=== PATIENT | male | born 1960 | race Caucasian/White ===

== ENCOUNTER → 2021-11-03 | Outpatient (CLI) | payer MEDICARE, MEDICAID ==
--- NOTE | 2021-11-03 17:20 | RAD ---
EXAM: Bilateral carotid duplex with waveform analysis. CLINICAL HISTORY: Syncope and collapse TECHNIQUE: Longitudinal and transverse sonographic images of the bilateral carotid arteries was perfo rmed utilizing grayscale, color and spectral Doppler techniques. COMPARISON: None FINDINGS: There are calcifications in the carotid bulb, greater on the left.. Vertebrals: Antegrade flow bilaterally. Right: PSV CCA (cm/s): 93 PSV ICA (cm/s): 75 EDV ICA (cm/s): 24 PSV ECA (cm/s): 98 ICA/CCA Ratio: 0.81 Left: PSV CCA (cm/s): 105 PSV ICA (cm/s): 66 EDV ICA (cm/s): 20 PSV ECA (cm/s): 92 ICA/CCA Ratio: 0.62 IMPRESSION: Less than 50 percent stenosis of the internal carotid arteries bilaterally. Consensus Panel Montilla-scale and Doppler US Criteria for Diagnosis of ICA Stenosis Degree of Stenosis (%) ICA PSV (Cm/sec) Plaque Estimate (%)* Normal <125 None <50 <125 <50 50-69 125-230 >50 >70 but < near occlusion >230 >50 Near occlusion High, low, or undetectable Visible Total occlusion Undetectable Visible, no detectable lumen *Plaque estimate (diameter reduction) with montilla-scale and color Doppler US Degree of Stenosis (%) ICA/CCA PSV Ratio ICA EDV (cm/sec) Normal <2.0 <40 <50 <2.0 <40 50-69 2.0-4.0 40-100 >70 but < near occlusion >4.0 >100 Near occlusion Variable Variable Total occlusion Not applicable Not applicable Electronically signed by: Lindsey Rod MD (11/03/2021 5:17 PM) [id number]
== END ==
LOC: US 16:01
PROVIDERS: ATTEND Family Medicine
DX: I65.23 Occlusion and stenosis of bilateral carotid arteries (principal); R55 Syncope and collapse
CPT/HCPCS: 93880

== ENCOUNTER 2022-02-15 05:21 | Emergency (ER) | payer MEDICARE, MEDICAID ==
[~2022-02-15] VITALS: Ht 185.4 cm; Wt 85.9 kg
--- NOTE | 2022-02-15 05:25 | PHYS DOC ---
Past History Past Medical History: Hypertension, Sciatica (KEVIN FORD MD) Past Surgical History Bone grafts (KEVIN FORD MD) Smoking: Cigarettes (KEVIN FORD MD) General Adult HPI: HPI: ".. I having some nausea and vomiting.."... "I have been vomiting since Wednesday... I tried everything.. Tums, Calcium tabs.., Pepto-Bismol,.. " " I am puking so much... I can't keep my hypertension meds down..." Patient is a 62 year old male who presents with above hx and complaints nausea and vomiting since Wednesday. Patient denies any intake bad food. No recent travel. Possible exposure to 2 friends that have been ill. Patient did Complete COVID vaccination x2. Did not get flu vaccination this season. Patient normally follows with Dr. Garsia. No history of immunosuppression (KEVIN FORD MD) Review of Systems: Review of Systems: Constitutional: Denies fever or chills Eyes: Denies change in visual acuity HENT: Denies nasal congestion or sore throat Respiratory: Denies cough or shortness of breath Cardiovascular: Denies chest pain or edema GI: Epigastric abdominal pain, nausea, vomiting,. Denies bloody stools or diarrhea : Denies dysuria Musculoskeletal: Denies back pain or joint pain Integument: Denies rash Neurologic: Denies headache, focal weakness or sensory changes Endocrine: Denies polyuria or polydipsia Lymphatic: Denies swollen glands Psychiatric: Denies depression or anxiety (KEVIN FORD MD) Family History: Family History: Noncontributory to presentation (KEVIN FORD MD) Current Medications: Current Meds: See nursing for home meds (KEVIN FORD MD) Allergies: Allergies: No known drug allergies (KEVIN FORD MD) Physical Exam: PE: Constitutional: Well developed, well nourished, moderate acute distress, non- toxic appearance. [] HENT: Normocephalic, atraumatic, bilateral external ears normal, oropharynx dry, no oral exudates, nose normal. [] Eyes: PERRLA, EOMI, conjunctiva normal, no discharge. [] Neck: Normal range of motion, no tenderness, supple, no stridor. [] Cardiovascular:Heart rate regular rhythm, no murmur, PMI to left Lungs & Thorax: Bilateral breath sounds equal apex with few scattered wheezes on auscultation [] Abdomen: Bowel sounds hyperactive, soft, epigastric tenderness, no masses, no pulsatile masses. [] Skin: Warm, dry, no erythema, no rash. [] Back: No tenderness, no CVA tenderness. [] Extremities: No tenderness, no cyanosis, no clubbing, ROM intact, no edema. Right foot drop brace, scar, left leg scar, left hip scar Neurologic: Alert and oriented X 3, moves all extremities on request, has distal sensory,, no new focal deficits noted per patient Psychologic: Affect anxious, judgement normal, mood normal. [] (KEVIN FORD MD) Current Patient Data: Labs: Laboratory Tests Test 02/15/22 05:54 02/15/22 06:10 02/15/22 06:12 Urine Collection Type Unknown Urine Color Yellow Urine Clarity Clear Urine pH 6.0 Urine Specific [place] >=1.030 Urine Protein 100 mg/dl Urine Glucose (UA) Neg mg/dL Urine Ketones (Stick) 15 mg/dL Urine Blood Small Urine Nitrite Neg Urine Bilirubin Small Urine Urobilinogen Dipstick 1.0 mg/dL Urine Leukocyte Esterase Neg Urine RBC 3-5 /HPF Urine WBC Occ /HPF Urine Squamous Epithelial Cells Occ /LPF Urine Bacteria 0 /HPF White Blood Count 12.0 x10^3/uL Red Blood Count 5.38 x10^6/uL Hemoglobin 17.6 g/dL Hematocrit 51.8 % Mean Corpuscular Volume 96 fL Mean Corpuscular Hemoglobin 33 pg Mean Corpuscular Hemoglobin Concent 34 g/dL Red Cell Distribution Width 14.1 % Platelet Count 231 x10^3/uL Neutrophils (%) (Auto) 71 % Lymphocytes (%) (Auto) 19 % Monocytes (%) (Auto) 10 % Eosinophils (%) (Auto) 0 % Basophils (%) (Auto) 1 % Neutrophils # (Auto) 8.5 x10^3uL Lymphocytes # (Auto) 2.2 x10^3/uL Monocytes # (Auto) 1.1 x10^3/uL Eosinophils # (Auto) 0.0 x10^3/uL Basophils # (Auto) 0.1 x10^3/uL Prothrombin Time 11.0 SEC Prothromb Time International Ratio 1.1 Activated Partial Thromboplast Time 23 SEC Sodium Level 140 mmol/L Potassium Level 3.6 mmol/L Chloride Level 99 mmol/L Carbon Dioxide Level 32 mmol/L Anion Gap 9 Blood Urea Nitrogen 18 mg/dL Creatinine 1.2 mg/dL Estimated GFR (Cockcroft-Gault) 61.1 Glucose Level 106 mg/dL Calcium Level 9.8 mg/dL Total Bilirubin 0.9 mg/dL Direct Bilirubin 0.3 mg/dL Aspartate Amino Transf (AST/SGOT) 23 U/L Alanine Aminotransferase (ALT/SGPT) 32 U/L Alkaline Phosphatase 49 U/L Creatine Kinase 96 U/L Troponin I High Sensitivity 12 ng/L Total Protein 7.1 g/dL Albumin 4.0 g/dL Lipase 102 U/L Urine Opiates Screen Pos Urine Methadone Screen Neg Urine Barbiturates Neg Urine Phencyclidine Screen Neg Urine Amphetamine/Methamphetamine Neg Urine Benzodiazepines Screen Neg Urine Cocaine Screen Neg Urine Cannabinoids Screen Pos Urine Ethyl Alcohol Neg Influenza Type A (Rapid) Negative Influenza Type B (Rapid) Negative SARS-CoV-2 Antigen (Rapid) Negative Current Medications Medications (Trade) Dose Ordered Sig/Abigail Route PRN Reason Start Time Stop Time Status Last Admin Dose Admin Lactated Ringer's 1,000 ml @ 1,000 mls/hr Q1H IV 02/15/22 05:45 02/15/22 06:45 DC 02/15/22 06:27 Ondansetron HCl (Zofran) 8 mg 1X ONCE IVP 02/15/22 05:45 02/15/22 05:46 DC 02/15/22 06:30 Famotidine (Pepcid Vial) 20 mg 1X ONCE IVP 02/15/22 05:45 02/15/22 05:46 DC 02/15/22 06:29 Ketorolac Tromethamine (Toradol 30mg Vial) 30 mg 1X ONCE IVP 02/15/22 05:45 02/15/22 05:46 DC 02/15/22 06:30 Iohexol (Omnipaque 300 Mg/ml) 75 ml 1X ONCE IV 02/15/22 07:15 02/15/22 07:16 DC 02/15/22 07:21 Info (Do NOT chart on this entry -- for MONITORING) 1 each PRN DAILY PRN MC SEE COMMENTS 02/15/22 07:30 02/17/22 07:29 Fentanyl Citrate (Fentanyl 2ml Vial) 50 mcg 1X ONCE IVP 02/15/22 08:00 02/15/22 08:01 DC 02/15/22 07:53 Nicotine (Nicoderm Cq 14mg Patch) 1 patch PRN DAILY PRN TD SMOKING CESSATION 02/15/22 08:45 02/15/22 08:58 Multi-Ingredient Mouthwash/Gargle (Gi Cocktail) 20 ml 1X ONCE PO 02/15/22 09:30 02/15/22 09:31 DC 02/15/22 09:33 Dicyclomine HCl (Bentyl) 20 mg 1X ONCE IM 02/15/22 09:30 02/15/22 09:31 DC 02/15/22 09:33 Vital Signs: Vital Signs Date Time Temp Pulse Resp B/P (MAP) Pulse Ox O2 Delivery O2 Flow Rate FiO2 02/15/22 07:53 16 97 02/15/22 06:32 69 18 180/103 (128) 98 Room Air 02/15/22 05:26 98.2 84 18 158/98 (118) 97 (DONELL FLETCHER MD) EKG: EKG: [] (KEVIN FORD MD) Radiology/Procedures: Radiology/Procedures: [] (KEVIN FORD MD) Radiology/Procedures: [address] [address] IMAGING REPORT Signed PATIENT: BLU LOPEZ ACCOUNT: [id number] : 1960 LOCATION: ER AGE: 62 SEX: M EXAM STATUS: REG ER ORD. PHYSICIAN: DONELL FLETCHER MD REASON: RUQ pain PROCEDURE: ABDOMEN OR LWR BACK LTD Abdominal ultrasound right upper quadrant: Reason for examination: Right upper quadrant pain. Comparison is made to CT examination dated 02/15/2022. The liver is normal in size at 14.5 cm in greatest dimension and appears to be homogeneous with some fatty infiltration but no focal lesion. There is hepatopedal portal venous flow. Gallbladder appears to be a fold near the gallbladder neck. No definite choleliths are identified. Gallbladder wall is not thickened at 1.5 mm. Common bile duct is normal in caliber at 2.7 mm. Pancreas is obscured by bowel gas. Right kidney measures 11.3 x 5.1 x 5.3 cm in greatest dimensions and shows normal cortical medullary differentiation and good vascular flow with no mass or hydronephrosis. The abdominal aorta and inferior vena cava are poorly visualized due to midline bowel gas. IMPRESSION: Fatty liver. Folds in the region of the gallbladder neck which probably corresponds with the area of CT concern but no definite choleliths identified. Electronically signed by: Austin Schuster MD (02/15/2022 9:13 AM) [facility] DICTATED AND SIGNED BY: AUSTIN SCHUSTER MD DATE: 02/15/22905 CC: DONELL FLETCHER MD; TRISTIN GARSIA MD ~ [address] [address] IMAGING REPORT Signed PATIENT: BLU LOPEZ ACCOUNT: [id number] : 1960 LOCATION: ER AGE: 62 SEX: M EXAM STATUS: REG ER ORD. PHYSICIAN: DONELL FLETCHER MD REASON: Upper mid abdominal pain, N/V, OMNI 300, 75ml PROCEDURE: CT ABD PELV W/ IV CONTRST ONLY EXAM: Abdomen and pelvis CT with intravenous contrast. HISTORY: Pain. TECHNIQUE: Computed tomographic images of the abdomen and pelvis were obtained following the administration of intravenous contrast. Multiplanar reformatting was performed. *One or more of the following individualized dose reduction techniques were utilized for this examination: 1. Automated exposure control. 2. Adjustment of the mA and/or kV according to patient size. 3. Use of iterative reconstruction technique. COMPARISON: None. FINDINGS: Evaluation of the lower thorax demonstrates no infiltrate or pleural effusion. There is no suspicious hepatic lesion. There is a 7 mm hyperdense lesion within the gallbladder fossa near the gallbladder neck which may be due to artifact from a gallbladder wall fold, stone or polyp. The pancreas is unremarkable. There are splenic granulomas. The spleen is normal in size. The adrenal glands are unremarkable. There are incidental partially duplicated renal collecting systems. There is no hydronephrosis. There is no suspicious renal lesion. There is no appendicitis. There are prominent air and fluid-filled loops of small bowel within the left upper quadrant. There is no transition point to suggest obstruction. There is a small amount of stool within the colon. The prostate is mildly enlarged. There is bladder wall thickening likely due to underdistention. There is aortic and aortic branch vessel atherosclerosis. There is no lymphadenopathy. There is no acute or suspicious osseous finding. There is degenerative change involving the spine, primarily at the lumbosacral junction. IMPRESSION: 1. Hepatic steatosis. 2. Small filling defect within the gallbladder near the gallbladder neck, possibly due to artifact from a gallbladder wall fold, a stone or polyp. This can be better assessed with a gallbladder sonogram. 3. Mild prostatomegaly. Electronically signed by: Odalys Castro MD (02/15/2022 7:52 AM) [id number] DICTATED AND SIGNED BY: ODALYS CASTRO MD DATE: 02/15/22747 CC: DONELL FLETCHER MD; TRISTIN GARSIA MD ~ [address] [address] IMAGING REPORT Signed PATIENT: BLU LOPEZ ACCOUNT: [id number] : 1960 LOCATION: ER AGE: 62 SEX: M EXAM STATUS: REG ER ORD. PHYSICIAN: KEVIN FORD MD REASON: pain PROCEDURE: ACUTE ABDOMEN SERIES Acute Abdominal Series: 02/15/2022 5:38 AM Reason for study: Pain Comparison studies: None. Technique: Frontal view of the chest was obtained along with supine and upright views of the abdomen. Findings: Nonobstructive bowel gas pattern. No air fluid levels or free air. Small amount of stool noted within the colon. The lungs are clear without acute consolidative opacity. Biapical pleural- parenchymal scarring. No pleural effusion or pneumothorax. The cardiac and mediastinal contours are normal. Visualized osseous structures are intact. IMPRESSION: 1. Nonobstructed bowel gas pattern. Small amount of stool noted within the colon. 2. No acute cardiopulmonary findings. Electronically signed by: Kylah Bach MD (02/15/2022 6:14 AM) [facility] DICTATED AND SIGNED BY: KYLAH BACH MD DATE: 02/15/22 0613 CC: KEVIN FORD MD; TRISTIN GARSIA MD ~ (DONELL FLETCHER MD) Heart Score: C/O Chest Pain: No Risk Factors: Risk Factors: DM, Current or recent (<one month) smoker, HTN, HLP, family history of CAD, obesity. Risk Scores: Score 0 - 3: 2.5% MACE over next 6 weeks - Discharge Home Score 4 - 6: 20.3% MACE over next 6 weeks - Admit for Clinical Observation Score 7 - 10: 72.7% MACE over next 6 weeks - Early Invasive Strategies (KEVIN FORD MD) C/O Chest Pain: No (DONELL FLETCHER MD) Course & Med Decision Making: Course & Med Decision Making Pertinent Labs and Imaging studies reviewed. (See chart for details) Endorsed to at shift change. He will make disposition. Labs and xrays. pending at shift change. Impression: 1. Nausea and Vomiting 2. Abdomen pain [] (KEVIN FORD MD) Course & Med Decision Making Addendum by Dr. Donell Fletcher at 0948: I took over care of patient from Dr. Ford at 0600. I followed up with the patient's lab work. Results are largely unremarkable. High-sensitivity troponin was normal. Given constant epigastric pain over the past 4 days, 1 troponin was used to rule out myocardial ischemia. LFTs and lipase within normal limits. Urinary tract shows no evidence of infection or significant hematuria. Abdominal CT scan was ordered and showed mild filling defect at the neck of the gallbladder. This was further evaluated with use of ultrasound to rule out cholelithiasis. The patient was treated with IV fluids, antiemetics, pain medication, GI cocktail, and dicyclomine. Patient's condition at this time has improved and patient is stable. Patient tolerating oral intake without difficulty. Patient appropriate for discharge at this time. Recommend close follow-up with primary doctor in the next 1 to 2 days for reevaluation. Provided with contact information for Dr. Connelly of gastroenterology to follow-up as needed if symptoms are persistent. Prescribed Pepcid, Zofran, Bentyl, and MiraLAX for outpatient treatment. Recommend return to the emergency department for any worsening symptoms. Patient voiced understanding and in agreement with treatment plan. (DONELL FLETCHER MD) Dragon Disclaimer: Dragon Disclaimer: This electronic medical record was generated, in whole or in part, using a voice recognition dictation system. (KEVIN FORD MD) Departure Departure: Impression: Primary Impression: Epigastric pain Additional Impression: Nausea and vomiting Qualified Codes: R11.2 - Nausea with vomiting, unspecified Disposition: HOME / SELF CARE / HOMELESS Condition: IMPROVED Referrals: TRISTIN GARSIA MD (PCP) EAGLE CONNELLY MD Patient Instructions: Abdominal Pain, Nausea and Vomiting Additional Instructions: Follow-up with your primary care provider in the next 2 days for reevaluation. Return to the emergency department for any worsening symptoms. Scripts Dicyclomine Hcl (DICYCLOMINE HCL) 20 Mg Tablet 1 TAB PO QID PRN for ABDOMINAL CRAMPS, #30 TAB Prov: DONELL FLETCHER MD 02/15/22 Polyethylene Glycol 3350 (MIRALAX) 17 Gm Powd.pack 1 PACKET PO DAILY for constipation for 2 Days, #2 PACKET 0 Refills dissolve in water Prov: DONELL FLETCHER MD 02/15/22 Ondansetron (ONDANSETRON ODT) 4 Mg Tab.rapdis 1 TAB PO Q8HRS PRN for VOMITING, #16 TAB Prov: DONELL FLETCHER MD 02/15/22 Famotidine (PEPCID) 20 Mg Tablet 1 TAB PO BID, #30 TAB 0 Refills Prov: DONELL FLETCHER MD 02/15/22 KEVIN FORD MD February 15, 2022 05:25 DONELL FLETCHER MD February 15, 2022 09:56
[2022-02-15] MEDS ORDERED: IV RINGERS SOLUTION,LACTATED 1,000 ML IV SCH (05:45)
[2022-02-15] MEDS ORDERED: ONDANSETRON PF 4 MG/2 ML VIAL. IVP ONE (05:45)
[2022-02-15] MEDS ORDERED: FAMOTIDINE 20 MG/2 ML VIAL IVP ONE (05:45)
[2022-02-15] MEDS ORDERED: KETOROLAC 30 MG/ML VIAL. IVP ONE (05:45)
--- NOTE | 2022-02-15 06:17 | RAD ---
Acute Abdominal Series: 02/15/2022 5:38 AM Reason for study: Pain Comparison studies: None. Technique: Frontal view of the chest was obtained along with supine and upright views of the abdomen. Findings: Nonobstructive bowel gas pattern. No air fluid levels or free air. Small amount of stool noted within the colon. The lungs are clear without acute consolidative opacity. Biapical pleural-parenchymal scarring. No pl eural effusion or pneumothorax. The cardiac and mediastinal contours are normal. Visualized osseous structures are intact. IMPRESSION: 1. Nonobstructed bowel gas pattern. Small amount of stool noted within the colon. 2. No acute cardiopulmonary findings. Electronically signed by: Naa Swanson MD (02/15/2022 6:14 AM) JONATHAN
[2022-02-15 06:34] LABS: BASO # 0.1 x10^3/uL (0.0-0.2); BASO % 1 % (0-3); EOS % 0 % (0-3); HEMATOCRIT 51.8 % (39.0-53.0); HEMOGLOBIN 17.6 g/dL (13.0-17.5); LYMPH # 2.2 x10^3/uL (1.0-4.8); LYMPH % 19 % (24-48); MEAN CORPUSCULAR HEMOGLOBIN 33 pg (25-35); MEAN CORPUSCULAR HGB CONC 34 g/dL (31-37); MEAN CORPUSCULAR VOLUME 96 fL (79-100); MONO # 1.1 x10^3/uL (0.0-1.1); MONO % 10 % (0-9); NEUT # 8.5 x10^3uL (1.8-7.7); NEUT % 71 % (31-73); PLATELET COUNT 231 x10^3/uL (140-400); RED BLOOD COUNT 5.38 x10^6/uL (4.30-5.70); RED CELL DISTRIBUTION WIDTH 14.1 % (11.5-14.5)
[2022-02-15 06:39] LABS: CLARITY,URINE CLEAR; COLOR,URINE YELLOW; GLUCOSE,URINE NEG (NEG)
[2022-02-15 06:40] LABS: BACTERIA,URINE 0 /HPF (0-FEW); NITRITE,URINE NEG (NEG); SQUAMOUS EPITHELIAL CELL,UR OCC /LPF; WBC,URINE OCC /HPF (0-4)
[2022-02-15 06:42] LABS: CALCIUM 9.8 mg/dL (8.5-10.1); CREATININE 1.2 mg/dL (0.7-1.3); GFR 61.1; POTASSIUM 3.6 mmol/L (3.5-5.1)
[2022-02-15 06:45] LABS: BARBITURATES NEG (NEG); BENZODIAZEPINES NEG (NEG); CANNABINOIDS POS (NEG); COCAINE NEG (NEG); METHADONE NEG (NEG); OPIATES POS (NEG); PHENCYCLIDINE NEG (NEG)
[2022-02-15 06:46] LABS: AMPHETAMINE/METHAMPHETAMINE NEG (NEG)
[2022-02-15 06:49] LABS: DIRECT BILIRUBIN 0.3 mg/dL (0.0-0.2); TOTAL BILIRUBIN 0.9 mg/dL (0.2-1.0); TOTAL PROTEIN 7.1 g/dL (6.4-8.2)
[2022-02-15 06:50] LABS: INFLUENZA A PATIENT NEGATIVE (NEGATIVE); INFLUENZA B PATIENT NEGATIVE (NEGATIVE)
[2022-02-15] MEDS ORDERED: IOHEXOL 300 MG/ML 75 ML VIAL. IV ONE (07:15)
[2022-02-15] MEDS ORDERED: CONTRAST GIVEN. MC PRN (07:30)
--- NOTE | 2022-02-15 07:54 | RAD ---
EXAM: Abdomen and pelvis CT with intravenous contrast. HISTORY: Pain. TECHNIQUE: Computed tomographic images of the abdomen and pelvis were obtained following the administ ration of intravenous contrast. Multiplanar reformatting was performed. *One or more of the following individualized dose reduction techniques were utilized for this examina tion: 1. Automated exposure control. 2. Adjustment of the mA and/or kV according to patient size. 3. Use of iterative reconstruction technique. COMPARISON: None. FINDINGS: Evaluation of the lower thorax demonstrates no infiltrate or pleural effusion. There is no suspicious hepatic lesion. There is a 7 mm hyperdense lesion within the gallbladder fossa near the ga llbladder neck which may be due to artifact from a gallbladder wall fold, stone or polyp. The pancrea s is unremarkable. There are splenic granulomas. The spleen is normal in size. The adrenal glands are unremarkable. There are incidental partially duplicated renal collecting systems. There is no hydronephrosis. There is no suspicious renal lesion. There is no appendicitis. There are prominent air and fluid-filled lo ops of small bowel within the left upper quadrant. There is no transition point to suggest obstructio n. There is a small amount of stool within the colon. The prostate is mildly enlarged. There is bladd er wall thickening likely due to underdistention. There is aortic and aortic branch vessel atherosclerosis. There is no lymphadenopathy. There is no ac [place] or suspicious osseous finding. There is degenerative change involving the spine, primarily at the lumbosacral junction. IMPRESSION: 1. Hepatic steatosis. 2. Small filling defect within the gallbladder near the gallbladder neck, possibly due to artifact fr om a gallbladder wall fold, a stone or polyp. This can be better assessed with a gallbladder sonogram . 3. Mild prostatomegaly. Electronically signed by: Odalys Toussaint MD (02/15/2022 7:52 AM) [id number]
[2022-02-15] MEDS ORDERED: NICOTINE 14MG PATCH. TD PRN (08:45)
--- NOTE | 2022-02-15 09:15 | RAD ---
Abdominal ultrasound right upper quadrant: Reason for examination: Right upper quadrant pain. Comparison is made to CT examination dated 02/15/2022. The liver is normal in size at 14.5 cm in greatest dimension and appears to be homogeneous with some fatty infiltration but no focal lesion. There is hepatopedal portal venous flow. Gallbladder appears to be a fold near the gallbladder neck. No definite choleliths are identified. Ga llbladder wall is not thickened at 1.5 mm. Common bile duct is normal in caliber at 2.7 mm. Pancreas is obscured by bowel gas. Right kidney measures 11.3 x 5.1 x 5.3 cm in greatest dimensions and shows normal cortical medullary differentiation and good vascular flow with no mass or hydronephrosis. The abdominal aorta and inferi or vena cava are poorly visualized due to midline bowel gas. IMPRESSION: Fatty liver. Folds in the region of the gallbladder neck which probably corresponds with the area of CT concern bu t no definite choleliths identified. Electronically signed by: Alaina Victoria MD (02/15/2022 9:13 AM) DUC
[2022-02-15] MEDS ORDERED: LIDO:MAALOX 1:1 20 ML SINGLE DOSE. PO ONE (09:30)
[2022-02-15] MEDS ORDERED: DICYCLOMINE 20 MG/2 ML VIAL. IM ONE (09:30)
[2022-02-15 09:55] VITALS: BP 142/72
[2022-02-15] MEDS ORDERED: DICY20TA PO (09:55)
[2022-02-15] MEDS ORDERED: FAMO-63 PO (09:55)
[2022-02-15] MEDS ORDERED: ONDA4TAB12 PO (09:55)
[2022-02-15] MEDS ORDERED: POLY17PO5 PO (09:55)
== END 2022-02-15 10:10 | disposition home or self-care (01) ==
LOC: ER 05:21
DX: R10.13 Epigastric pain (principal); R11.2 Nausea with vomiting, unspecified; I10 Essential (primary) hypertension; F17.210 Nicotine dependence, cigarettes, uncomplicated; Z20.822 Contact with and (suspected) exposure to COVID-19
CPT/HCPCS: 99285; J0500; J1885; J2405; J3010; J3490; J7120; Q9967; 36415; 74022; 74177; 76705; 80048; 80076; 80307; 81001; 82550; 83690; 84484; 85025; 85610; 85730; 87428; 93005

== ENCOUNTER 2022-02-17 09:05 | Inpatient (IN) | payer MEDICARE, MEDICAID ==
[~2022-02-17] VITALS: Ht 188 cm; Wt 85.4 kg
[~2022-02-17 09:05] MED LIST: DICY20TA PO; FAMO-63 PO; ONDA4TAB12 PO; POLY17PO5 PO
[2022-02-17 10:03] LABS: BASO # 0.1 x10^3/uL (0.0-0.2); BASO % 1 % (0-3); EOS # 0.2 x10^3/uL (0.0-0.7); EOS % 2 % (0-3); HEMATOCRIT 48.4 % (39.0-53.0); LYMPH # 3.8 x10^3/uL (1.0-4.8); LYMPH % 34 % (24-48); MEAN CORPUSCULAR HEMOGLOBIN 33 pg (25-35); MEAN CORPUSCULAR HGB CONC 33 g/dL (31-37); MEAN CORPUSCULAR VOLUME 98 fL (79-100); MONO % 9 % (0-9); NEUT # 6.2 x10^3uL (1.8-7.7); NEUT % 55 % (31-73); PLATELET COUNT 232 x10^3/uL (140-400); RED BLOOD COUNT 4.94 x10^6/uL (4.30-5.70); WHITE BLOOD COUNT 11.3 x10^3/uL (4.0-11.0)
--- NOTE | 2022-02-17 10:08 | PHYS DOC ---
Past History Past Medical History: Hypertension, Sciatica Additional Past Medical Histor: sciatica Past Surgical History: Other Additional Past Surgical Histo: left leg-bone graft, left hip surgery and right leg X 3 Smoking: Cigarettes Alcohol Use: None Adult General Chief Complaint Chief Complaint: ALTERED MENTAL STATUS HPI HPI Patient is a 62 year old male who presents to the emergency department for altered mental status. Patient brought to the emergency department by EMS. Patient reportedly found outside of his home by his neighbor shortly before contacting EMS. Patient reported that he had been outside for what he thought was only approximately 30 minutes, however the neighbor states the patient seemed very confused and was not acting like himself. He also noted that the water was still running inside of his home and that a propane tank had been left on behind his home. The patient was seen in the emergency department 2 days ago with primary complaints of upper abdominal pain. During triage he did state to the nurse that he was having upper abdominal pain. On my evaluation, patient states that he has been having cough. The patient states that he drove himself to the emergency department. He denies any recent alcohol or drug use. States yes when asked if he is experiencing abdominal pain at this time. Review of Systems Review of Systems Constitutional: Denies fever or chills [] Eyes: Denies change in visual acuity, redness, or eye pain [] HENT: Denies nasal congestion or sore throat [] Respiratory: Cough, denies shortness of breath [] Cardiovascular: Denies chest pain [] GI: Abdominal pain, nausea, denies vomiting, bloody stools or diarrhea [] : Denies dysuria or hematuria [] Musculoskeletal: Denies back pain or joint pain [] Integument: Denies rash or skin lesions [] Neurologic: Denies headache, focal weakness or sensory changes [] All other systems were reviewed and found to be within normal limits, except as documented in this note. Allergies Allergies Allergies Coded Allergies Type Severity Reaction Last Updated Verified No Known Drug Allergies 02/17/22 No Physical Exam Physical Exam Constitutional: Alert, afebrile, confused. [] HENT: Normocephalic, atraumatic, bilateral external ears normal, oropharynx moist, no oral exudates, nose normal. [] Eyes: PERRLA, EOMI, conjunctiva normal, no discharge. [] Neck: Normal range of motion, no tenderness, supple, no stridor. [] Cardiovascular:Heart rate regular rhythm, no murmur [] Lungs & Thorax: Bilateral breath sounds clear to auscultation [] Abdomen: Bowel sounds normal, soft, no tenderness, no masses, no pulsatile masses. [] Skin: Warm, dry, no erythema, no rash. [] Back: No tenderness, no CVA tenderness. [] Extremities: No tenderness, no cyanosis, subacute abrasion to left knee, ROM intact, no edema. [] Neurologic: Alert, disoriented to events, normal motor function, normal sensory function, no focal deficits noted. [] Current Patient Data Vital Signs Vital Signs Date Time Temp Pulse Resp B/P (MAP) Pulse Ox O2 Delivery O2 Flow Rate FiO2 02/17/22 09:30 98.7 70 20 149/88 (108) 95 Room Air Lab Results Laboratory Tests Test 02/17/22 09:35 White Blood Count 11.3 x10^3/uL Red Blood Count 4.94 x10^6/uL Hemoglobin 16.0 g/dL Hematocrit 48.4 % Mean Corpuscular Volume 98 fL Mean Corpuscular Hemoglobin 33 pg Mean Corpuscular Hemoglobin Concent 33 g/dL Red Cell Distribution Width 14.0 % Platelet Count 232 x10^3/uL Neutrophils (%) (Auto) 55 % Lymphocytes (%) (Auto) 34 % Monocytes (%) (Auto) 9 % Eosinophils (%) (Auto) 2 % Basophils (%) (Auto) 1 % Neutrophils # (Auto) 6.2 x10^3uL Lymphocytes # (Auto) 3.8 x10^3/uL Monocytes # (Auto) 1.0 x10^3/uL Eosinophils # (Auto) 0.2 x10^3/uL Basophils # (Auto) 0.1 x10^3/uL Sodium Level 141 mmol/L Potassium Level 3.3 mmol/L Chloride Level 102 mmol/L Carbon Dioxide Level 31 mmol/L Anion Gap 8 Blood Urea Nitrogen 31 mg/dL Creatinine 2.1 mg/dL Estimated GFR (Cockcroft-Gault) 32.1 BUN/Creatinine Ratio 15 Glucose Level 81 mg/dL Calcium Level 8.7 mg/dL Magnesium Level 2.1 mg/dL Total Bilirubin 0.4 mg/dL Aspartate Amino Transf (AST/SGOT) 21 U/L Alanine Aminotransferase (ALT/SGPT) 30 U/L Alkaline Phosphatase 49 U/L Ammonia 11 mcmol/L Total Protein 6.8 g/dL Albumin 4.0 g/dL Albumin/Globulin Ratio 1.4 Current Medications Medications (Trade) Dose Ordered Sig/Abigail Route PRN Reason Start Time Stop Time Status Last Admin Dose Admin Sodium Chloride 1,000 ml @ 1,000 mls/hr 1X ONCE IV 02/17/22 11:00 02/17/22 11:59 EKG EKG Interpreted by me: Heart rate 69, sinus rhythm, normal axis, normal intervals, no acute ST/T wave abnormalities present [] Radiology/Procedures Radiology/Procedures [address] [address] IMAGING REPORT Signed PATIENT: BLU LOPEZ ACCOUNT: [id number] : 1960 LOCATION: ER AGE: 62 SEX: M EXAM STATUS: REG ER ORD. PHYSICIAN: DONELL CONTRERAS MD REASON: altered mental status PROCEDURE: CT HEAD WO CONTRAST CT HEAD/BRAIN WO Date: 02/17/2022 10:01 AM Clinical Indication: altered mental status Comparison: None. Technique: 5 mm axial tomographic images were obtained of the head without contrast. These were viewed on brain and bone windows. One or more of the following dose reduction techniques were utilized: Automated exposure control (AEC), Adjustment of mA and/or kV according to patient size, Use of iterative reconstruction technique such as ASiR, CT scan done according to ALARA and image gently/image wisely Findings: The brain parenchyma is normal in attenuation. No intra- or extra-axial mass or fluid collection. No acute hemorrhage. The ventricles are normal in size, shape, and morphology. The okeefe-white matter junction is normal. The subarachnoid cisterns are patent. The visualized paranasal sinuses are normal. The visualized portions of the orbits and globes are normal. The mastoid air cells are clear. The loading shovel oiler topogram shows no lytic lesion or fracture. Impression: No acute intracranial process. Electronically signed by: Gustavo Hill MD (02/17/2022 10:10 AM) [id number] DICTATED AND SIGNED BY: GUSTAVO HILL MD DATE: 02/17/22 1008 CC: DONELL CONTRERAS MD; TRISTIN PAT MD ~ [place] [address] IMAGING REPORT Signed PATIENT: BLU LOPEZ ACCOUNT: [id number] : 1960 LOCATION: ER AGE: 62 SEX: M EXAM STATUS: REG ER ORD. PHYSICIAN: DONELL CONTRERAS MD REASON: epigastric pain PROCEDURE: ACUTE ABDOMEN SERIES XR ABDOMEN COMP ACUTE History: Epigastric pain Comparison: 02/15/2022. Acute abdominal series and CT abdomen Technique: Frontal chest with upright and supine radiographs of the abdomen and pelvis. Findings: Chest: Left lower lung calcified granuloma. No airspace consolidation. No pneumothorax or effusion. Bowel gas pattern: Nonspecific nonobstructive bowel gas pattern with scattered gas filled nondilated small bowel and colonic loops. No excessive colonic stool burden. Free air: None. Abnormal calcifications: None. Bones: No acute findings. Other: None. Impression: 1. No acute abdominal findings. 2. No airspace disease or pneumothorax. Electronically signed by: Brandon Underwood MD (02/17/2022 10:32 AM) [id number] DICTATED AND SIGNED BY: BRANDON UNDERWOOD MD DATE: 02/17/22 1012 CC: DONELL CONTRERAS MD; TRISTIN PAT MD ~ [] Heart Score C/O Chest Pain: No Risk Factors: Risk Factors: DM, Current or recent (<one month) smoker, HTN, HLP, family history of CAD, obesity. Risk Scores: Risk Factors: DM, Current or recent (<one month) smoker, HTN, HLP, family history of CAD, obesity. Course & Med Decision Making Course & Med Decision Making Pertinent Labs and Imaging studies reviewed. (See chart for details) CT head and acute abdominal series were reviewed and showed no acute findings. Blood work was reviewed and shows elevated BUN and creatinine compared to previous visit supporting dehydration resulting in acute renal failure. Patient started on IV fluids in the emergency department. Given change in mental status, the patient will need admission to the hospital for further evaluation and care. I spoke with Dr. Santo, hospitalist, who has agreed to admit patient for further care. [] Dragon Disclaimer Dragon Disclaimer This electronic medical record was generated, in whole or in part, using a voice recognition dictation system. Departure Departure: Impression: Primary Impression: Acute renal failure Additional Impressions: Dehydration Acute encephalopathy Disposition: ADMITTED INPATIENT Admitting Physician: Estephania Santo Condition: STABLE Referrals: TRISTIN PAT MD (PCP) Problem Qualifiers Primary Impression: Acute renal failure Acute renal failure type: unspecified Qualified Codes: N17.9 - Acute kidney failure, unspecified DONELL CONTRERAS MD February 17, 2022 10:08
--- NOTE | 2022-02-17 10:12 | RAD ---
CT HEAD/BRAIN WO Date: 02/17/2022 10:01 AM Clinical Indication: altered mental status Comparison: None. Technique: 5 mm axial tomographic images were obtained of the head without contrast. These were view ed on brain and bone windows. One or more of the following dose reduction techniques were utilized: A utomated exposure control (AEC), Adjustment of mA and/or kV according to patient size, Use of iterati ve reconstruction technique such as ASiR, CT scan done according to ALARA and image gently/image smith ly Findings: The brain parenchyma is normal in attenuation. No intra- or extra-axial mass or fluid collection. No acute hemorrhage. The ventricles are normal in size, shape, and morphology. The okeefe-white matter wendy ction is normal. The subarachnoid cisterns are patent. The visualized paranasal sinuses are normal. The visualized portions of the orbits and globes are no rmal. The mastoid air cells are clear. The range conservationist topogram shows no lytic lesion or fracture. Impression: No acute intracranial process. Electronically signed by: Jones Hill MD (02/17/2022 10:10 AM) [id number]
[2022-02-17 10:16] LABS: CALCIUM 8.7 mg/dL (8.5-10.1); CREATININE 2.1 mg/dL (0.7-1.3); GFR 32.1; POTASSIUM 3.3 mmol/L (3.5-5.1)
[2022-02-17 10:18] LABS: ALBUMIN/GLOBULIN RATIO 1.4 (1.0-1.7); MAGNESIUM 2.1 mg/dL (1.8-2.4); TOTAL BILIRUBIN 0.4 mg/dL (0.2-1.0); TOTAL PROTEIN 6.8 g/dL (6.4-8.2)
--- NOTE | 2022-02-17 10:34 | RAD ---
XR ABDOMEN COMP ACUTE History: Epigastric pain Comparison: 02/15/2022. Acute abdominal series and CT abdomen Technique: Frontal chest with upright and supine radiographs of the abdomen and pelvis. Findings: Chest: Left lower lung calcified granuloma. No airspace consolidation. No pneumothorax or effusion. Bowel gas pattern: Nonspecific nonobstructive bowel gas pattern with scattered gas filled nondilated small bowel and colonic loops. No excessive colonic stool burden. Free air: None. Abnormal calcifications: None. Bones: No acute findings. Other: None. Impression: 1. No acute abdominal findings. 2. No airspace disease or pneumothorax. Electronically signed by: Brandon Mathews MD (02/17/2022 10:32 AM) [id number]
[2022-02-17] MEDS ORDERED: IV NORMAL SALINE 1,000ML 1,000 ML IV ONE (11:00)
[2022-02-17 11:09] LABS: BARBITURATES NEG (NEG); BENZODIAZEPINES NEG (NEG); CANNABINOIDS POS (NEG); COCAINE NEG (NEG); METHADONE NEG (NEG); OPIATES POS (NEG); PHENCYCLIDINE NEG (NEG)
[2022-02-17 11:12] LABS: BACTERIA,URINE 0 /HPF (0-FEW); CLARITY,URINE CLEAR; COLOR,URINE AMBER; GLUCOSE,URINE NEG (NEG); NITRITE,URINE NEG (NEG)
[2022-02-17 11:13] LABS: AMORPHOUS SEDIMENT,UR PRESENT /HPF; HYALINE CASTS, URINE MANY /HPF
[2022-02-17] MEDS ORDERED: ONDANSETRON PF 4 MG/2 ML VIAL. IVP PRN (11:15)
[2022-02-17 11:17] LABS: AMPHETAMINE/METHAMPHETAMINE NEG (NEG)
[2022-02-17 13:26] VITALS: BP 174/83
[2022-02-17] MEDS ORDERED: ONDANSETRON ODT 4 MG TAB.RAPDIS PO PRN (15:30)
[2022-02-17] MEDS ORDERED: DICYCLOMINE HCL 20 MG TABLET PO PRN (15:30)
[2022-02-17] MEDS ORDERED: ESCITALOPRAM OX20 MG PO (15:34)
[2022-02-17] MEDS ORDERED: LOSA1TAB19 PO (15:41)
[2022-02-17] MEDS ORDERED: OXYC1TAB22 PO (15:42)
[2022-02-17] MEDS ORDERED: oxyCODONE/APAP 10/325 1 TAB TABLET PO PRN (15:45)
[2022-02-17] MEDS: IV NORMAL SALINE 1,000ML 1,000 ML IV SCH ×2 (15:52→19:50)
[2022-02-17] MEDS: FAMOTIDINE 20 MG TABLET PO SCH (16:47)
[2022-02-17] MEDS: oxyCODONE/APAP 10/325 1 TAB TABLET PO PRN ×2 (16:51→21:59)
[2022-02-17 16:58] VITALS: BP 171/88
[2022-02-17] MEDS: LOSARTAN 50 MG TABLET. PO SCH (17:09)
[2022-02-17] MEDS: hydroCHLOROthiazide 12.5 MG TABLET PO SCH (17:09)
[2022-02-17 19:00] VITALS: BP_SYST 135; BP_DIAS 6; BP_DIAS 76
--- NOTE | 2022-02-17 19:35 | HP ---
DATE OF SERVICE: 02/17/2022 ADMIT DATE: 02/17/2022 HISTORY OF PRESENT ILLNESS: The patient is a 62-year-old male patient who presented to the Emergency Department with altered mental status. The patient was brought to the Emergency Department by EMS. He reportedly was found outside of his home by his neighbor shortly before contacting EMS. The patient reported that he had been outside for what he thought was only approximately 30 minutes; however, the neighbor said the patient seemed very confused and was not acting like himself. He also noted that the water was still running inside of his home and that the propane tank has been left on behind his home. The patient was seen in the Emergency Department about 2 days ago with a primary complaint of upper abdominal pain. During triage, he did state to the nurse that he is having upper abdominal pain and evaluation by the ER physician, he stated he has been having cough. The patient stated he drove himself to the Emergency Department, although he was actually brought by the EMS. He denied any recent alcohol or drugs. When he was asked the experience, stated that he is experiencing abdominal pain. He was extensively investigated in the Emergency Room and he has had lab work and imaging studies. His lab work showed that his white cell count was slightly elevated at 11.3, with normal hemoglobin, hematocrit and platelets. His chemistry showed he has mild hypokalemia, but he is dehydrated. He has elevated BUN and creatinine at 31 and 2.1. His baseline was 1.2. His urinalysis showed that it was unremarkable and his tox screen was positive for opiates and cannabinoids. His coronavirus rapid antigen testing was negative. He did have a CT scan of the ____, showed that the brain parenchyma is normal in attenuation. No intra or extraaxial mass or fluid collection. No acute hemorrhage. The ventricles are normal in size, shape and morphology. The okeefe-white matter distinction is normal. The subarachnoid cisterns are patent. The visualized paranasal sinuses are normal. The visualized portions, orbits and globes are normal. The mastoid air cells are clear. His CT scan of the acute abdomen series showed the patient has no acute abdominal finding. No airspace disease or pneumothorax. The patient was admitted with basically altered mental status, most likely drug overdose as he was positive for opiates and cannabinoids. He was also found to have acute renal failure, with a BUN and creatinine are 31 and 2.1, with normal baseline of creatinine of 1.2. He was started on IV fluids, was admitted for further evaluation and treatment. PAST MEDICAL HISTORY: Significant for hypertension as well as sciatica. PAST SURGICAL HISTORY: Significant for left leg bone graft and left hip surgery and right leg x3. ALLERGIES: He has no known drug allergies. MEDICATIONS: He gets his medication from [facility]. FAMILY HISTORY: He had 1 brother, at the age of 64. The cause of is not known. He does not know anything about his parents. SOCIAL HISTORY: He is about 6 months ago. He smokes 10 cigarettes per day. Quit alcohol years ago. He does not use any drugs. He works for a [employer] company, in the backstage. REVIEW OF SYSTEMS: As per history of present illness. PHYSICAL EXAMINATION: GENERAL: On arrival to the Emergency Room, there was no pallor, jaundice or cyanosis. No thyromegaly. No jugular venous distention. No limb edema. VITAL SIGNS: His heart rate was 70, blood pressure was 149/88, temperature was 98.7, respiratory rate 20 and oxygen saturation was 95% on room air. HEAD, EYES, EARS, NOSE, AND THROAT: Normocephalic, atraumatic. NECK: Supple. HEART: Showed normal first and second heart sounds. No gallop, rub or murmur. CHEST: Chest was clear to auscultation. No crepitation or rhonchi. ABDOMEN: Distended, soft, nontender. NEUROLOGIC: He was grossly intact, but definitely confused and somewhat disoriented. LABORATORY DATA: His lab work on arrival showed that his white cell count was 11,300, hemoglobin 16, hematocrit 48, MCV 98 and platelet count 232,000 with manual differential showed 55% polymorphs, ____ lymphocytes and 9% monocytes. Serum sodium 141, potassium 3.3, chloride 102, bicarbonate 31, anion gap of 8, BUN 31, creatinine 2.1, estimated GFR was 32 mL/minute. His glucose was 81, calcium was 8.7, magnesium was 2.1. Total bilirubin, AST, ALT and alkaline phosphatase were normal. His serum ammonia was 11. Total protein was 6.6 and albumin was 4. His urinalysis was essentially unremarkable and toxic screen was positive for opiates and cannabinoids. His coronavirus rapid antigen testing was negative and his CT scan of the head showed no acute intracranial process. ASSESSMENT AND PLAN: This is a 62-year-old male patient who was admitted with altered mental status. He was found to be positive for opiates and cannabinoids in drug screen. He has also acute kidney injury. His creatinine is up to 2.1 from a baseline of 1.2. He is also noted to have blood pressure. The patient is currently on the following medications, he is on dicyclomine 20 mg 4 times a day, butylene glycol 17 grams daily, he is on ondansetron 4 mg every 8 hours, and famotidine 20 mg twice a day. Plan is to continue on his medications and continue with IV fluids. We will repeat his lab work again tomorrow and we will consult Dr. Willard to assist with management. BLADIMIR/HOSSEIN/RADHA DR: BLADIMIR/césar TID: [id number]
[2022-02-17 23:00] VITALS: BP 156/82
[2022-02-18] MEDS: IV NORMAL SALINE 1,000ML 1,000 ML IV SCH (04:09)
[2022-02-18] MEDS: oxyCODONE/APAP 10/325 1 TAB TABLET PO PRN (04:09)
[2022-02-18 05:00] VITALS: BP 143/78
[2022-02-18 06:23] LABS: BASO # 0.1 x10^3/uL (0.0-0.2); BASO % 1 % (0-3); EOS # 0.2 x10^3/uL (0.0-0.7); EOS % 2 % (0-3); HEMATOCRIT 46.6 % (39.0-53.0); HEMOGLOBIN 15.5 g/dL (13.0-17.5); LYMPH # 2.5 x10^3/uL (1.0-4.8); LYMPH % 27 % (24-48); MEAN CORPUSCULAR HEMOGLOBIN 33 pg (25-35); MEAN CORPUSCULAR HGB CONC 33 g/dL (31-37); MEAN CORPUSCULAR VOLUME 99 fL (79-100); MONO # 0.8 x10^3/uL (0.0-1.1); MONO % 9 % (0-9); NEUT # 5.6 x10^3uL (1.8-7.7); NEUT % 61 % (31-73); PLATELET COUNT 217 x10^3/uL (140-400); RED BLOOD COUNT 4.72 x10^6/uL (4.30-5.70); RED CELL DISTRIBUTION WIDTH 14.1 % (11.5-14.5); WHITE BLOOD COUNT 9.2 x10^3/uL (4.0-11.0)
[2022-02-18 06:38] LABS: ALBUMIN 3.2 g/dL (3.4-5.0); CALCIUM 8.3 mg/dL (8.5-10.1); CREATININE 1.5 mg/dL (0.7-1.3); GFR 47.3; POTASSIUM 3.6 mmol/L (3.5-5.1); TOTAL BILIRUBIN 0.9 mg/dL (0.2-1.0); TOTAL PROTEIN 6.3 g/dL (6.4-8.2)
[2022-02-18 07:48] VITALS: BP 143/78
[2022-02-18] MEDS: hydroCHLOROthiazide 12.5 MG TABLET PO SCH (07:48)
[2022-02-18] MEDS: LOSARTAN 50 MG TABLET. PO SCH (07:48)
[2022-02-18] MEDS: FAMOTIDINE 20 MG TABLET PO SCH (07:49)
[2022-02-18] MEDS ORDERED: NICOTINE 14MG PATCH. TD SCH (09:00)
[2022-02-18] MEDS ORDERED: POLYETHYLENE GLYCOL 3350 17 GM PACKET. PO SCH (09:00)
--- NOTE | 2022-02-18 09:38 | DS ---
DATE OF DISCHARGE: 02/18/2022 ATTENDING PHYSICIAN: Dr. Santo. FINAL DISCHARGE DIAGNOSES: 1. Altered mentation, resolved. 2. Probable overdose of opiates. 3. Dehydration related to diuretics. 4. Essential hypertension. 5. History of peripheral neuropathy. 6. Mild chronic obstructive pulmonary disease. HISTORY AND PHYSICAL: The patient is 62. He has hypertension. He also has chronic pain syndrome involving his right leg. He wears a brace. He was prescribed oxycodone. He may have taken some extra, he cannot remember. History is very vague. He was admitted for further treatment and evaluation. He was also dehydrated with a creatinine of 2.1 mg/dL. PHYSICAL EXAMINATION: Please see the dictated note. PERTINENT LABORATORY AND X-RAY STUDIES: Admission potassium was 3.3 mEq, replaced up to 3.6, sodium 142 mEq/L, creatinine had been 2.1 mg percent, with hydration, it came down to 1.5 mg/dL, BUN was down to 22. Transaminases were normal. Ammonia level was 11. Hemoglobin was maintained at 15.5 g/dL with a white count of 9200. Toxicology screen was positive for opiates and tetrahydrocannabis. Serology negative for coronavirus. Urinalysis was clear. The obligatory CT of the head showed no acute intracranial process. COURSE IN HOSPITAL: The patient was admitted with altered mentation due to narcotics. He eventually cleared up his sensorium. He was able to eat, ambulate and talk without any difficulties. He had gentle IV hydration. We held his losartan, hydrochlorothiazide. His creatinine improved from 1.5 mg/dL. This will be followed up as an outpatient. By the second hospital day, his vital signs were stable. He was alert, eating and ready for discharge. Strong encouragement to avoid substance abuse as well as taking his narcotics accordingly. I wrote him a script for losartan 50 mg only minus the hydrochlorothiazide. His other meds are unchanged. He will follow up with his primary care physician regarding the pain meds that will have to be obtained through his PCP's office. The patient was then discharged from our hospital in stable condition with explicit instruction and followup care. His other discharge meds includes dicyclomine, citalopram, Pepcid and MiraLax. He was discharged in stable condition with explicit instruction and followup care. Total discharge time spent [address]: Kym TID: [id number]
--- NOTE | 2022-03-03 17:29 | EKG ---
[address] [address] Test Date: 2022-02-17 Test Time: 09:43:28 Pat Name: BLU LOPZE Department: Room: 107 A Gender: M Executive Vice President: : 1960 Requested By: DONELL CONTRERAS Order Number: [id number] Reading MD: Measurements Intervals [place] Rate: 69 P: -63 IA: 110 QRS: 76 QRSD: 99 T: 45 QT: 436 QTc: 467 Interpretive Statements Sinus or ectopic atrial rhythm Borderline short IA interval No previous ECG available for comparison
== END 2022-02-18 08:45 | disposition home or self-care (01) | DRG 917 ==
LOC: ER 09:05 → ER HOLD 11:12 → 1 SOUTH 13:04
PROVIDERS: ADMIT Internal Medicine; ATTEND Internal Medicine
DX: T40.601A Poisoning by unspecified narcotics, accidental (unintentional), initial encounter (principal); N17.0 Acute kidney failure with tubular necrosis; G93.40 Encephalopathy, unspecified; E86.0 Dehydration; E87.6 Hypokalemia; F17.210 Nicotine dependence, cigarettes, uncomplicated; G89.4 Chronic pain syndrome; I10 Essential (primary) hypertension; J44.9 Chronic obstructive pulmonary disease, unspecified; T50.2X5A Adverse effect of carbonic-anhydrase inhibitors, benzothiadiazides and other diuretics, initial encounter; Y92.89 Other specified places as the place of occurrence of the external cause; Z20.822 Contact with and (suspected) exposure to COVID-19
CPT/HCPCS: 36415; 70450; 74022; 74177; 76705; 80048; 80053; 80076; 80307; 81001; 82140; 82550; 83690; 83735; 84484; 85025; 85610; 85730; 87086; 87426; 87428; 93005; 96361; 96374; J2405; P9612; 99285-25; J7030